=== PATIENT | female | born 1995 | race Caucasian/White ===

== ENCOUNTER 2018-06-28 13:15 | Emergency (ER) | payer SELFPAY ==
[2018-06-28 13:29] VITALS: BP 140/79
[2018-06-28] MEDS ORDERED: ZOFRAN IV ONE (14:17)
[2018-06-28] MEDS ORDERED: NACL 0.9% 1000 ML 1,000 ML IV ONE (14:17)
--- NOTE | 2018-06-28 14:21 | Emergency Department Report ---
ED HPI - General Chief complaint: Nausea/Vomiting/Diarrhea Stated complaint: MORNING SICKNESS Time Seen by Provider: 06/28/18 13:49 Source: patient Mode of arrival: Ambulatory Limitations: No Limitations - History of Present Illness Initial comments: [id number] female 5 weeks presents to ED with complaints of nausea , vomiting, feeling dehydrated. States she has been diagnosed with hyperemesis gravidarum. States prescriptions for Zofran and Phenergan did not help. Patient has appointment for a termination of on tomorrow. Complaint: other (vomiting) -: week(s) (5) Severity: severe Consistency: constant Improves with: medication Worsens with: none Associated symptoms: nausea/vomiting, weakness. denies: vaginal bleeding, abdominal pain Vaginal bleeding: none :: Yes Number of weeks : 5 - Related Data : 2 Para: 0 Allergies Allergy/AdvReac Type Severity Reaction Status Date / Time No Known Allergies Allergy Unverified 06/28/18 13:29 ED Review of Systems ROS: Stated complaint: MORNING SICKNESS Other details as noted in HPI Comment: All other systems reviewed and negative Constitutional: weakness. denies: chills, fever Gastrointestinal: nausea, vomiting. denies: abdominal pain Genitourinary: other (denies vaginal bleeding) ED Past Medical Hx - Past Medical History Previous Medical History?: No - Surgical History Past Surgical History?: No - Social History Smoking Status: Former Smoker Substance Use Type: None ED Physical Exam - General Limitations: No Limitations General appearance: alert, in no apparent distress - Head Head exam: Present: atraumatic, normocephalic - Eye Eye exam: Present: normal appearance - ENT ENT exam: Present: mucous membranes moist - Neck Neck exam: Present: normal inspection - Respiratory Respiratory exam: Present: normal lung sounds bilaterally. Absent: respiratory distress - Cardiovascular Cardiovascular Exam: Present: normal rhythm, tachycardia - GI/Abdominal GI/Abdominal exam: Present: soft. Absent: tenderness - Extremities Exam Extremities exam: Present: normal inspection - Neurological Exam Neurological exam: Present: alert, oriented X3 - Psychiatric Psychiatric exam: Present: normal affect, normal mood - Skin Skin exam: Present: warm, dry, intact, normal color. Absent: rash ED Course Vital Signs 06/28/18 13:21 Temperature 98.4 F Pulse Rate 111 H Respiratory 16 Rate Blood Pressure 140/79 O2 Sat by Pulse 98 Oximetry ED Medical Decision Making - Lab Data Result diagrams: 06/28/18 14:37 06/28/18 14:37 - Medical Decision Making 23 yo female with hyperemesis gravidarum. Labs unremarkable. IV fluids and Zofran given. Patient states feels much better. Appt for elective tomorrow, states she does not need any more prescriptions for antiemetics - Differential Diagnosis dehydration, KEVIN, hypokalemia Critical care attestation.: If time is entered above; I have spent that time in minutes in the direct care of this critically ill patient, excluding procedure time. ED Disposition Clinical Impression: Hyperemesis gravidarum Disposition: DC-01 TO HOME OR SELFCARE Is pt being admited?: No Condition: Stable Instructions: Hyperemesis Gravidarum (ED) Referrals: BREANNE RODARTE MD [Staff Physician] - as needed [facility] [Provider Group] - 3-5 Days Time of Disposition: 16:05
[2018-06-28 14:46] LABS: Basophils # (Auto) 0.1 K/mm3 (0.0-0.1); Basophils % (Auto) 0.5 % (0.0-1.8); Eosinophils % (Auto) 0.3 % (0.0-4.3); Hematocrit 41.4 % (30.3-42.9); Lymphocytes # (Auto) 2.1 K/mm3 (1.2-5.4); Mean Corpuscular HGB Conc 34 % (30-34); Mean Corpuscular Hemoglobin 28 pg (28-32); Mean Corpuscular Volume 84 fl (79-97); Monocytes # (Auto) 0.7 K/mm3 (0.0-0.8); Monocytes % (Auto) 6.1 % (0.0-7.3); Platelet Count 338 K/mm3 (140-440); Red Blood Count 4.94 M/mm3 (3.65-5.03)
[2018-06-28 15:00] LABS: BUN/Creatinine Ratio 22; Blood Urea Nitrogen 11 mg/dL (7-17); Calcium 9.7 mg/dL (8.4-10.2); Hemolysis Index 12
== END 2018-06-28 16:26 | disposition home or self-care (01) ==
LOC: ED 13:15
DX: O21.0 Mild hyperemesis gravidarum (principal); O99.331 Smoking (tobacco) complicating pregnancy, first trimester; Z3A.01 Less than 8 weeks gestation of pregnancy
CPT/HCPCS: 36415; 80048; 84702; 85025; 96361; 96374; 99283; J2405; J7030